=== PATIENT | female | born 1960 | race Caucasian/White ===

== ENCOUNTER 2016-10-02 12:05 | Emergency (ER) | payer MEDICAID, OTHER, SELFPAY ==
[2016-10-02 12:05] VITALS: BMI 28.1
[2016-10-02 12:15] VITALS: TEMP 98.9; O2SAT 98
[2016-10-02] MEDS ORDERED: Sodium Chloride 0.9% 1,000 ML IV STA (12:23)
[2016-10-02 13:30] LABS: BASO % 0.6 % (0.0-2.0); EOS # 0.1 K/uL (0.0-0.7); EOS % 1.3 % (0.0-4.0); HEMATOCRIT 37.2 % (34.0-47.0); LYMPH # 2.6 K/uL (1.0-4.3); MEAN CELL VOLUME 86.1 fl (81.0-99.0); MEAN CORPUSCULAR HEMOGLOBIN 28.3 pg (27.0-31.0); MEAN CORPUSCULAR HGB CONC 32.9 g/dL (33.0-37.0); MONO # 0.5 K/uL (0.0-0.8); MONO % 6.5 % (0.0-10.0); NEUT # 4.3 K/uL (1.8-7.0); NEUT % 56.6 % (50.0-75.0); RED CELL DISTRIBUTION WIDTH 13.5 % (11.5-14.5); WHITE BLOOD COUNT 7.5 K/uL (4.8-10.8)
--- NOTE | 2016-10-02 13:32 | RAD ---
HISTORY: dizzy palpitations COMPARISON: Chest x-ray performed 04/03/13 TECHNIQUE: Chest PA and lateral FINDINGS: LUNGS: No focal consolidation. Please note that chest x-ray has limited sensitivity for the detection of pulmonary masses. PLEURA: No significant pleural effusion identified. No definite pneumothorax . CARDIOVASCULAR: The cardiomediastinal silhouette appears within normal limits of size. OSSEOUS STRUCTURES: Degenerative changes. VISUALIZED UPPER ABDOMEN: Unremarkable. OTHER FINDINGS: None. IMPRESSION: No focal consolidation, significant pleural effusion, or definite pneumothorax identified.
[2016-10-02 13:39] LABS: BLOOD UREA NITROGEN 12 mg/dl (7-17); CARBON DIOXIDE 25 mmol/L (22-30); CHLORIDE 105 mmol/L (98-107); GFR AFRICAN-AMERICAN > 60; GLUCOSE,RANDOM 92 mg/dL (65-105); POTASSIUM 3.8 MMOL/L (3.6-5.0); SODIUM 142 mmol/l (132-148)
[2016-10-02 13:40] LABS: ALB/GLOB RATIO 1.3 (1.0-2.1); ALKALINE PHOSPHATASE 95 U/L (38-126); ALT/SGPT 35 U/L (9-52); AST/SGOT 25 U/L (14-36); BILIRUBIN,TOTAL 0.3 mg/dl (0.2-1.3); CALCIUM 9.4 mg/dL (8.4-10.2); TOTAL PROTEIN 7.5 G/DL (6.3-8.2); URINE BACTERIA FEW (<OCC); URINE BILIRUBIN NEGATIVE (NEGATIVE); URINE BLOOD NEGATIVE (NEGATIVE); URINE COLOR YELLOW (YELLOW); URINE GLUCOSE (UA) NEG (Normal); URINE KETONE NEGATIVE (NEGATIVE); URINE LEUKOCYTE ESTERASE SMALL Leu/uL (Negative); URINE PROTEIN NEGATIVE (NEGATIVE); URINE UROBILINOGEN 0.2-1.0 mg/dL (0.2-1.0); WBC URINE 2 /hpf (0-5)
--- NOTE | 2016-10-02 15:11 | ED PDOC ---
HPI: General Adult Time Seen by Provider: 10/02/16 12:23 Chief Complaint (Nursing): Flu-like Symptoms Chief Complaint (Provider): Body Aches and Pains History Per: Patient, Brass Buffer ([employer] boat carpenter mechanic was used) History/Exam Limitations: no limitations Onset/Duration Of Symptoms: Days (1 week ago) Have you had recent travel within the past 21 days to any of the following countries: [place], [place], [place] or [place]?: No Current Symptoms Are (Timing): Still Present Severity: Moderate Location: R shoulder, L neck, b/l hands Quality: aches and "pain" Additional Complaint(s): Love Vicente is a 56 year old female, with a past medical history of type 2 diabetes mellitus and hypertension, who presents to the emergency department for the evaluation of body aches and pains localized to her right shoulder, left neck, and bilateral hands, that the patient has been experiencing for 1 week. Associated chest congestion and a cough are currently present. Denies chest pain, orthopnea, edema, recent trauma, or acute injury. Of note, [employer] boat carpenter mechanic was used to obtain history from patient. PMD: none specified Past Medical History Reviewed: Historical Data, Nursing Documentation, Vital Signs Vital Signs: Last Vital Signs Temp 98.9 F 10/02/16 12:07 Pulse 79 10/02/16 12:07 Resp 18 10/02/16 12:07 BP 126/73 10/02/16 12:07 Pulse Ox 98 10/02/16 12:07 - Medical History PMH: Diabetes (type II), HTN, Hypercholesterolemia Denies: Chronic Kidney Disease - Surgical History Surgical History: Cholecystectomy Other surgeries: Colonoscopy - Family History Family History: States: No Known Family Hx - Social History Current smoker - smoking cessation education provided: No Ex-Smoker (has not smoked in the last 12 months): No Alcohol: None Drugs: Denies - Immunization History Hx Tetanus Toxoid Vaccination: No Hx Influenza Vaccination: No Hx Pneumococcal Vaccination: No - Home Medications Home Medications: Ambulatory Orders Medication Instructions Recorded Enalapril Maleate [Vasotec] 20 mg PO DAILY 06/02/16 Enalapril Maleate [Vasotec] 20 mg PO DAILY #30 tab 06/02/16 Folic Acid 1 tab PO DAILY 06/02/16 metFORMIN [glucOPHAGE] 1 tab PO DAILY 06/02/16 Naproxen [Naprosyn] 500 mg PO BID PRN #14 tablet 10/02/16 - Allergies Allergies/Adverse Reactions: Allergies Allergy/AdvReac Type Severity Reaction Status Date / Time No Known Allergies Allergy Verified 06/02/16 17:38 Review of Systems ROS Statement: Except As Marked, All Systems Reviewed And Found Negative Cardiovascular: Positive for: Other (chest congestion). Negative for: Chest Pain, Orthopnea, Edema Respiratory: Positive for: Cough Musculoskeletal: Positive for: Neck Pain (L-sided), Shoulder Pain (R-sided), Hand Pain (b/l) Physical Exam - Reviewed Nursing Documentation Reviewed: Yes Vital Signs Reviewed: Yes - Physical Exam Appears: Positive for: Non-toxic, No Acute Distress Head Exam: Positive for: ATRAUMATIC, NORMOCEPHALIC Skin: Positive for: Normal Color, Warm, Dry Cardiovascular/Chest: Positive for: Regular Rate, Rhythm. Negative for: Murmur Respiratory: Positive for: Normal Breath Sounds. Negative for: Respiratory Distress Gastrointestinal/Abdominal: Positive for: Normal Exam, Soft. Negative for: Tenderness Extremity: Positive for: Normal ROM, Other (several trigger point pain sites including wrists, shoulders, back, and neck). Negative for: Tenderness Neurologic/Psych: Positive for: Alert, Oriented - Laboratory Results Result Diagrams: 10/02/16 13:21 10/02/16 13:21 - ECG ECG Rhythm: Positive for: Sinus Rhythm. Negative for: ST/T Changes, Nonspecific Changes (no acute interval changes) Rate: 68 O2 Sat by Pulse Oximetry: 98 (RA) Pulse Ox Interpretation: Normal Medical Decision Making Medical Decision Makin:23 Initial Impression: Myalgia and arthralgia Initial Plan: * Chest X-Ray * EKG * CBC * CMP * Troponin I * Total Creatinine Kinase * Urinalysis * Influenza A/B * Sodium Chloride 0.9% 1,000 ml IV at 1,000 mls/hr * Toradol 30 mg IVP * Reevaluation 12:53 EKG results read at a rate of 68. Normal Sinus Rhythm, No Acute ST/T changes or Interval Changes. 01:53 Chest x-ray results came back unremarkable. Blood work is normal. Troponin is negative. Will discharge patient with Naproxen. Patient was referred to followup with Sherlyn Lopez MD for workup of arthralgia. Scribe Attestation: Documented by Torey Farrell, acting as a scribe for Rufus Hart III, MD. Provider Scribe Attestation: All medical record entries made by the Scribe were at my direction and personally dictated by me. I have reviewed the chart and agree that the record accurately reflects my personal performance of the history, physical exam, medical decision making, and the department course for this patient. I have also personally directed, reviewed, and agree with the discharge instructions and disposition. Disposition - Clinical Impression Clinical Impression: Myalgia, Arthralgia - Disposition Referrals: Sherlyn Lopez MD [Medical Doctor] - Condition: STABLE Additional Instructions: See your doctor for further testing. Return to ER for any new or worsening symptoms. Prescriptions: Naproxen [Naprosyn] 500 mg PO BID PRN #14 tablet PRN Reason: Pain, Moderate (4-7) Instructions: Trigger Point Pain (ED), Musculoskeletal Pain (ED), Arthralgia ( ED) Forms: [employer] (Nepalese)
[2016-10-02 15:32] VITALS: BP 135/89; PULSE 67; RESP 16
--- NOTE | 2016-10-03 10:15 | CARD ---
APPROVED REPORT EKG Measurement Heart [id number] <Conclusion> Normal sinus rhythm Normal ECG
== END 2016-10-02 15:31 | disposition home or self-care (01) ==
LOC: H.ER 12:05
DX: M79.1 Myalgia (principal); R05 Cough; M54.2 Cervicalgia; M25.512 Pain in left shoulder; R09.89 Other specified symptoms and signs involving the circulatory and respiratory systems; I10 Essential (primary) hypertension; E11.9 Type 2 diabetes mellitus without complications; R07.89 Other chest pain

== ENCOUNTER 2017-08-02 14:04 | Observation (INO) | payer OTHER ==
[2017-08-02 14:04] VITALS: BMI 28.1
[2017-08-02] MEDS ORDERED: Nitroglycerin 2% Ointment Foilpak UD TOP STA (14:57)
[2017-08-02] MEDS ORDERED: Nitroglycerin 2% Ointment Foilpak UD TOP ONE (15:15)
--- NOTE | 2017-08-02 15:16 | ED PDOC ---
HPI: Chest Pain Time Seen by Provider: 08/02/17 14:22 Chief Complaint (Nursing): Chest Pain Chief Complaint (Provider): Chest pain History Per: Patient History/Exam Limitations: no limitations Onset/Duration Of Symptoms: Days (4) Additional Complaint(s): Pt reports intermittent left sided chest pain X 4 days, associated with SOB and nonproductive cough. Denies fever, palpitations. Past Medical History Reviewed: Nursing Documentation, Vital Signs Vital Signs: Last Vital Signs Temp 97 F L 08/02/17 15:19 Pulse 92 H 08/02/17 17:06 Resp 19 08/02/17 17:06 BP 98/56 L 08/02/17 17:06 Pulse Ox 98 08/02/17 17:06 - Medical History PMH: Diabetes (type II), HTN, Hypercholesterolemia Denies: Chronic Kidney Disease - Surgical History Surgical History: Cholecystectomy - Family History Family History: States: Unknown Family Hx - Social History Current smoker - smoking cessation education provided: No Alcohol: None - Immunization History Hx Tetanus Toxoid Vaccination: No Hx Influenza Vaccination: No Hx Pneumococcal Vaccination: No - Home Medications Home Medications: Ambulatory Orders Medication Instructions Recorded Enalapril/Hydrochlorothiazide 1 tab PO DAILY 08/02/17 [Enalapril-Hctz 10-25 mg Tablet] Gemfibrozil [Lopid] 600 mg PO DAILY 08/02/17 metFORMIN [glucOPHAGE] 500 mg PO DAILY 08/02/17 - Allergies Allergies/Adverse Reactions: Allergies Allergy/AdvReac Type Severity Reaction Status Date / Time No Known Allergies Allergy Verified 08/02/17 14:13 VENITA Risk Score for UA/NSTEMI - VENITA Risk Score Age > 64: NO 3 or more CAD Risk Factors: YES Known CAD (Stenosis greater than 50%): NO Aspirin use in past 7 days: NO Severe Angina: NO EKG ST changes greater than 0.5mm: NO Positive Cardiac Marker: NO VENITA Score: 1 Risk %: 5% Wells Criteria for PE - Wells Criteria for Pulmonary Embolism Clinical Signs and Symptoms of DVT: No P.E is #1 Diagnosis, or Equally Likely: No Heart Rate >100: Yes Immobilization at least 3 days;Surgery previous 4 weeks: No Previous, objectively diagnosed PE or DVT: No Hemoptysis: No Malignancy w/treatment within 6 months, or palliative: No Total Score: 1.5 Review of Systems Constitutional: Negative for: Fever, Chills Cardiovascular: Positive for: Chest Pain. Negative for: Palpitations Respiratory: Positive for: Cough, Shortness of Breath. Negative for: Sputum, Wheezing Gastrointestinal: Negative for: Nausea, Vomiting, Abdominal Pain, Diarrhea Genitourinary Female: Negative for: Dysuria, Hematuria Skin: Negative for: Rash, Lesions Neurological: Negative for: Weakness, Numbness, Headache Physical Exam - Reviewed Nursing Documentation Reviewed: Yes Vital Signs Reviewed: Yes - Physical Exam Appears: Positive for: Well, No Acute Distress Head Exam: Positive for: ATRAUMATIC, NORMAL INSPECTION Skin: Positive for: Normal Color, Warm, Dry Eye Exam: Positive for: Normal appearance, EOMI, PERRL Neck: Positive for: Normal, Painless ROM, Supple Cardiovascular/Chest: Positive for: Regular Rate, Rhythm. Negative for: Chest Non Tender (TTP L chest wall) Respiratory: Positive for: Normal Breath Sounds. Negative for: Rales, Rhonchi, Wheezing Gastrointestinal/Abdominal: Positive for: Normal Exam Neurologic/Psych: Positive for: Alert, audit lead II-XII, Oriented - Laboratory Results Result Diagrams: 08/02/17 15:10 08/02/17 15:10 - ECG Interpretation Of ECG: ST @ 102, nonspecific T wave abnormality. O2 Sat by Pulse Oximetry: 96 Pulse Ox Interpretation: Normal Medical Decision Making Medical Decision Makin yo female with L sided CP. - labs - EKG - CXR - [employer] Accession No. : [id number] Patient Name / ID : DEQUAN CERVANTES / [id number] Exam Date : 08/02/2017 15:06:40 ( Approved ) Study Comment : Sex / Age : F / 56Y Creator : Cristobal Parra MD Dictator : Cristobal Parra MD Stereotyper Helper : Jewelry Store Manager : Cristobal Parra MD Approver2 : Report Date : 08/02/2017 15:37:48 My Comment : PROCEDURE: CHEST RADIOGRAPH, 1 VIEW HISTORY: CP COMPARISON: None available. FINDINGS: LUNGS: Clear. PLEURA: No pneumothorax or pleural fluid seen. CARDIOVASCULAR: Normal. OSSEOUS STRUCTURES: No significant abnormalities. VISUALIZED UPPER ABDOMEN: Normal. OTHER FINDINGS: None. IMPRESSION: No active disease. 15:05 Pt c/o dizziness, BP 98/56, Nitropaste discontinued. Disposition - Clinical Impression Clinical Impression: Chest pain - Patient ED Disposition Is Patient to be Admitted: Yes - Disposition Disposition Time: 17:31 Condition: STABLE Forms: [employer] (Wallisian) - Pt Status Changed To: Hospital Disposition Of: Observation - POA Present On Arrival: None
[2017-08-02 15:20] LABS: BASO # 0.1 K/uL (0.0-0.2); BASO % 0.8 % (0.0-2.0); EOS # 0.1 K/uL (0.0-0.7); HEMOGLOBIN 12.7 g/dL (12.0-16.0); LYMPH # 2.4 K/uL (1.0-4.3); LYMPH % 29.3 % (20.0-40.0); MEAN CELL VOLUME 86.4 fl (81.0-99.0); MEAN CORPUSCULAR HEMOGLOBIN 28.7 pg (27.0-31.0); MEAN CORPUSCULAR HGB CONC 33.2 g/dL (33.0-37.0); MEAN PLATELET VOLUME 8.1 fl (7.2-11.7); MONO # 0.5 K/uL (0.0-0.8); MONO % 6.2 % (0.0-10.0); NEUT % 62.7 % (50.0-75.0); NRBC % 0.1 % (0.0-0.0); RBC 4.43 Mil/uL (3.80-5.20); RED CELL DISTRIBUTION WIDTH 13.2 % (11.5-14.5)
[2017-08-02 15:23] LABS: ALB/GLOB RATIO 1.2 (1.0-2.1); ALBUMIN 4.2 g/dL (3.5-5.0); ALT/SGPT 52 U/L (9-52); AST/SGOT 31 U/L (14-36); BLOOD UREA NITROGEN 11 mg/dl (7-17); CALCIUM 9.4 mg/dL (8.4-10.2); GFR AFRICAN-AMERICAN > 60; GFR NON-AFRICAN AMERICAN > 60
[2017-08-02] MEDS ORDERED: Potassium Chloride 20 mEq ER Tab PO STA (15:36)
--- NOTE | 2017-08-02 15:39 | RAD ---
PROCEDURE: CHEST RADIOGRAPH, 1 VIEW HISTORY: CP COMPARISON: None available. FINDINGS: LUNGS: Clear. PLEURA: No pneumothorax or pleural fluid seen. CARDIOVASCULAR: Normal. OSSEOUS STRUCTURES: No significant abnormalities. VISUALIZED UPPER ABDOMEN: Normal. OTHER FINDINGS: None. IMPRESSION: No active disease.
[2017-08-02 15:52] LABS: PARTIAL THROMBOPLASTIN TIME 32.7 Seconds (25.6-37.1); PROTHROMBIN TIME 11.2 Seconds (9.8-13.1)
[2017-08-02] MEDS ORDERED: Potassium Chloride 20 mEq ER Tab PO ONE (17:03)
[2017-08-03 07:22] LABS: HDL CHOLESTEROL 26 MG/DL (30-70)
[2017-08-03 07:33] LABS: LDL CHOLESTEROL 88 mg/dL (0-129)
[2017-08-03] MEDS: Enoxaparin 40 mg Syringe SC SCH (08:19)
--- NOTE | 2017-08-03 13:33 | CP.PCM.CON ---
History of Present Illness - History of Present Illness History of Present Illness: I was asked to see patietn by Dr Angeles. Patient is a 56 year old female with PMH HTN, hypercholestreolemia, DM who presents with chest pain. Symptoms have began for the last 4 days and are described as intermittent pressure in the left side of the chest. Her symptoms are exertional and improve with rest. The patient has noted progressionof her symptoms. Review of Systems - Constitutional Constitutional: absent: As Per HPI, Anorexia, Chills, Daytime Sleepiness, Excessive Sweating, Fatigue, Fever, Frequent Falls, Headache, Increased Appetite , Lethargy, Malaise, Night Sweats, Snoring, Sleep Apnea, Weight Gain, Weight Loss, Weakness, Other - EENT Eyes: absent: As Per HPI, Blind Spots, Blurred Vision, Change in Vision, Decreased Night Vision, Diplopia, Discharge, Dry Eye, Exophthalmos, Floaters, Irritation, Itchy Eyes, Loss of Peripheral Vision, Pain, Photophobia, Requires Corrective Lenses, Sees Flashes, Spots in Vision, Tunnel Vision, Other Visual Disturbances, Loss of Vision, Other Ears: absent: As Per HPI, Decreased Hearing, Ear Discharge, Ear Pain, Tinnitus, Abnormal Hearing, Disequilibrium, Dizziness, Other Nose/Mouth/Throat: absent: As Per HPI, Epistaxis, Nasal Congestion, Nasal Discharge, Nasal Obstruction, Nasal Trauma, Nose Pain, Post Nasal Drip, Sinus Pain, Sinus Pressure, Bleeding Gums, Change in Voice, Dental Pain, Dry Mouth, Dysphagia, Halitosis, Hoarsness, Lip Swelling, Mouth Lesions, Mouth Pain, Odynophagia, Sore Throat, Throat Swelling, Tongue Swelling, Facial Pain, Neck Pain, Neck Mass, Other - Breasts Breasts: absent: As Per HPI, Change in Shape, Mass, Pain, Nipple Discharge, Nipple Inversion, Skin Changes, Swelling, Other - Cardiovascular Cardiovascular: Chest Pain at Rest, Chest Pain with Activity, Dyspnea - Respiratory Respiratory: Dyspnea - Gastrointestinal Gastrointestinal: absent: As Per HPI, Abdominal Pain, Belching, Bloating, Change in Bowel Habits, Change in Stool Character, Coffee Ground Emesis, Constipation, Cramping, Diarrhea, Dyspepsia, Dysphagia, Early Satiety, Excessive Flatus, Fecal Incontinence, Heartburn, Hematemesis, Hematochezia, Loose Stools, Melena, Nausea, Odynophagia, Temesmus, Vomiting, Other - Genitourinary Genitourinary: absent: As Per HPI, Change in Urinary Stream, Difficulty Urinating, Dysuria, Flank Pain, Hematuria, Pyuria, Nocturia, Urinary Incontinence, Urinary Frequency, Urinary Hesitance, Urinary Urgency, Voiding Freq/Small Amts, Freq UTI, Hx Renal/Bladder Calculi, Hx /Renal Surgery, Bladder Distension, Other - Musculoskeletal Musculoskeletal: absent: As Per HPI, Abnormal Gait, Arthralgias, Atrophy, Back Pain, Deformity, Joint Swelling, Limited Range of Motion, Loss of Height, Muscle Cramps, Muscle Weakness, Myalgias, Neck Pain, Numbness, Radiating Pain into Limb, Stiffness, Tingling, Other - Integumentary Integumentary: absent: As Per HPI, Acne, Alopecia, Bleeding Lesions, Change in Hair, Change in Nails, Change in Pigmentation, Changing Lesions, Dry Skin, Erythema, Furuncle, Hirsutism, Lesions, New Lesions, Non-Healing Lesions, Photosensitivity, Pruritus, Rash, Skin Pain, Skin Ulcer, Sores, Striae, Swelling , Unusual Bruising, Wounds, Jaundice, Other - Neurological Neurological: absent: As Per HPI, Abnormal Gait, Abnormal Hearing, Abnormal Movements, Abnormal Speech, Behavioral Changes, Burning Sensations, Confusion, Convulsions, Disequilibrium, Dizziness, Numbness, Focal Weakness, Frequent Falls , Headaches, Lack of Coordination, Loss of Vision, Memory Loss, Paresthesias, Radicular Pain, Restless Legs, Sensory Deficit, Syncope, Tingling, Tremor, Vertigo, Weakness, Other Visual Disturbances, Other - Endocrine Endocrine: absent: As Per HPI, Change in Body Appearance, Change in Libido, Cold Intolorance, Deepening of Voice, Excessive Sweating, Fatigue, Flushing, Heat Intolorance, Increase in Ring/Shoe/Hat Size, Palpitations, Polydipsia, Polyphagia, Polyuria, Other - Hematologic/Lymphatic Hematologic: absent: As Per HPI, Easy Bleeding, Easy Bruising, Lymphadenopathy, Other Past Patient History - Past Medical History & Family History Past Medical History?: Yes - Past Social History Smoking Status: Never Smoked - CARDIAC Hx Cardiac Disorders: Yes Hx Hypercholesterolemia: Yes Hx Hypertension: Yes - PULMONARY Hx Respiratory Disorders: No - NEUROLOGICAL Hx Neurological Disorder: No - HEENT Hx HEENT Problems: No - RENAL Hx Chronic Kidney Disease: No - ENDOCRINE/METABOLIC Hx Endocrine Disorders: Yes Hx Diabetes Mellitus Type 2: Yes - HEMATOLOGICAL/ONCOLOGICAL Hx Blood Disorders: No Hx AIDS: No Hx Human Immunodeficiency Virus (HIV): No - INTEGUMENTARY Hx Dermatological Problems: No - MUSCULOSKELETAL/RHEUMATOLOGICAL Hx Musculoskeletal Disorders: No Hx Falls: No - GASTROINTESTINAL Hx Gastrointestinal Disorders: No - GENITOURINARY/GYNECOLOGICAL Hx Genitourinary Disorders: No - PSYCHIATRIC Hx Psychophysiologic Disorder: No Hx Substance Use: No - SURGICAL HISTORY Hx Surgeries: Yes Hx Cholecystectomy: Yes - ANESTHESIA Hx Anesthesia: Yes Hx Anesthesia Reactions: No Hx Malignant Hyperthermia: No Meds Allergies/Adverse Reactions: Allergies Allergy/AdvReac Type Severity Reaction Status Date / Time No Known Allergies Allergy Verified 08/02/17 14:13 - Medications Medications: Current Medications Enalapril Maleate (Vasotec) 10 mg PO DAILY [facility] Last Admin: 08/03/17 13:00 Dose: 10 mg Enoxaparin Sodium (Lovenox) 40 mg SC DAILY [facility] PRN Reason: Protocol Last Admin: 08/03/17 08:19 Dose: 40 mg Gemfibrozil (Lopid) 600 mg PO DAILY [facility] Last Admin: 08/03/17 08:19 Dose: 600 mg Hydrochlorothiazide (Hydrodiuril) 25 mg PO DAILY [facility] Last Admin: 08/03/17 08:19 Dose: 25 mg Metformin HCl (Glucophage) 500 mg PO DAILY [facility] Last Admin: 08/03/17 08:19 Dose: 500 mg Physical Exam - Constitutional Appears: Non-toxic - Head Exam Head Exam: NORMAL INSPECTION - Eye Exam Eye Exam: Normal appearance - ENT Exam ENT Exam: Mucous Membranes Moist - Neck Exam Neck exam: Positive for: Normal Inspection - Respiratory Exam Respiratory Exam: NORMAL BREATHING PATTERN - Cardiovascular Exam Cardiovascular Exam: REGULAR RHYTHM - GI/Abdominal Exam GI & Abdominal Exam: Normal Bowel Sounds - Rectal Exam Rectal Exam: Deferred - Extremities Exam Extremities exam: Positive for: full ROM, pedal edema - Back Exam Back exam: NORMAL INSPECTION - Neurological Exam Neurological exam: Alert, Oriented x3 - Psychiatric Exam Psychiatric exam: Normal Affect - Skin Skin Exam: Normal Color Results - Vital Signs Recent Vital Signs: Last Vital Signs Temp 98.2 F 08/03/17 12:12 Pulse 84 08/03/17 12:12 Resp 18 08/03/17 12:12 BP 122/74 08/03/17 12:12 Pulse Ox 97 08/03/17 12:12 - Labs Result Diagrams: 08/02/17 15:10 08/02/17 15:10 Labs: Laboratory Results - last 24 hr 08/02/17 08/02/17 08/02/17 15:10 15:10 15:10 WBC 8.0 RBC 4.43 Hgb 12.7 Hct 38.3 MCV 86.4 MCH 28.7 MCHC 33.2 RDW 13.2 Plt Count 306 MPV 8.1 Neut % (Auto) 62.7 Lymph % (Auto) 29.3 [place] % (Auto) 6.2 Eos % (Auto) 1.0 Baso % (Auto) 0.8 Neut # (Auto) 5.0 Lymph # (Auto) 2.4 [place] # (Auto) 0.5 Eos # (Auto) 0.1 Baso # (Auto) 0.1 PT 11.2 INR 1.0 APTT 32.7 D-Dimer, Quantitative Sodium 142 Potassium 3.4 L Chloride 100 Carbon Dioxide 27 Anion Gap 18 BUN 11 Creatinine 0.7 Est GFR ( Amer) > 60 Est GFR (Non-Af Amer) > 60 POC Glucose (mg/dL) Random Glucose 146 H Calcium 9.4 Total Bilirubin 0.3 AST 31 ALT 52 D Alkaline Phosphatase 88 Troponin I < 0.0120 Total Protein 7.7 Albumin 4.2 Globulin 3.5 Albumin/Globulin Ratio 1.2 Triglycerides Cholesterol LDL Cholesterol Direct HDL Cholesterol TSH 3rd Generation 08/02/17 08/02/17 08/02/17 15:51 21:12 22:26 WBC RBC Hgb Hct MCV MCH MCHC RDW Plt Count MPV Neut % (Auto) Lymph % (Auto) [place] % (Auto) Eos % (Auto) Baso % (Auto) Neut # (Auto) Lymph # (Auto) [place] # (Auto) Eos # (Auto) Baso # (Auto) PT INR APTT D-Dimer, Quantitative 97 Sodium Potassium Chloride Carbon Dioxide Anion Gap BUN Creatinine Est GFR ( Amer) Est GFR (Non-Af Amer) POC Glucose (mg/dL) 121 H Random Glucose Calcium Total Bilirubin AST ALT Alkaline Phosphatase Troponin I < 0.0120 Total Protein Albumin Globulin Albumin/Globulin Ratio Triglycerides Cholesterol LDL Cholesterol Direct HDL Cholesterol TSH 3rd Generation 08/03/17 08/03/17 08/03/17 05:30 05:41 11:23 WBC RBC Hgb Hct MCV MCH MCHC RDW Plt Count MPV Neut % (Auto) Lymph % (Auto) [place] % (Auto) Eos % (Auto) Baso % (Auto) Neut # (Auto) Lymph # (Auto) [place] # (Auto) Eos # (Auto) Baso # (Auto) PT INR APTT D-Dimer, Quantitative Sodium Potassium Chloride Carbon Dioxide Anion Gap BUN Creatinine Est GFR ( Amer) Est GFR (Non-Af Amer) POC Glucose (mg/dL) 133 H 152 H Random Glucose Calcium Total Bilirubin AST ALT Alkaline Phosphatase Troponin I < 0.0120 Total Protein Albumin Globulin Albumin/Globulin Ratio Triglycerides 328 H Cholesterol 175 LDL Cholesterol Direct 88 HDL Cholesterol 26 L TSH 3rd Generation 1.53 - EKG Data EKG Interpreted by: Myself EKG shows normal: Sinus rhythm Assessment & Plan (1) Diabetes Assessment and Plan: risk factor for CAD. recommend nuclear perfusion stress test. Status: Acute (2) HTN (hypertension) Assessment and Plan: blood pressure control. ARB therapy is indicated given diabetes Status: Acute (3) Chest pain Assessment and Plan: will recommend nuclear stress test for further evaluation Status: Acute
[2017-08-03 14:09] LABS: B-TYPE NATRIURETIC PEPTIDE < 11.1 pg/ml (0-900); BLOOD UREA NITROGEN 17 mg/dl (7-17); CALCIUM 9.9 mg/dL (8.4-10.2); GFR AFRICAN-AMERICAN > 60; GFR NON-AFRICAN AMERICAN > 60
--- NOTE | 2017-08-03 19:59 | CP.PCM.HP ---
History of Present Illness - History of Present Illness History of Present Illness: This is a 56 y/o female admitted for persistent on and off chest pain for the past 4 days. She has a hx of HTN and DM 2 and hyperlipidemia and has not been sent for cardiac evaluation. She sought medical evaluation due to persistence of symptoms. She denies any SOB. Currently on Metformin, HCTZ and Lopid. Not on ASA Past Patient History - Past Medical History & Family History Past Medical History?: Yes - Past Social History Smoking Status: Never Smoked - CARDIAC Hx Cardiac Disorders: Yes Hx Hypercholesterolemia: Yes Hx Hypertension: Yes - PULMONARY Hx Respiratory Disorders: No - NEUROLOGICAL Hx Neurological Disorder: No - HEENT Hx HEENT Problems: No - RENAL Hx Chronic Kidney Disease: No - ENDOCRINE/METABOLIC Hx Endocrine Disorders: Yes Hx Diabetes Mellitus Type 2: Yes - HEMATOLOGICAL/ONCOLOGICAL Hx Blood Disorders: No Hx AIDS: No Hx Human Immunodeficiency Virus (HIV): No - INTEGUMENTARY Hx Dermatological Problems: No - MUSCULOSKELETAL/RHEUMATOLOGICAL Hx Musculoskeletal Disorders: No Hx Falls: No - GASTROINTESTINAL Hx Gastrointestinal Disorders: No - GENITOURINARY/GYNECOLOGICAL Hx Genitourinary Disorders: No - PSYCHIATRIC Hx Psychophysiologic Disorder: No Hx Substance Use: No - SURGICAL HISTORY Hx Surgeries: Yes Hx Cholecystectomy: Yes - ANESTHESIA Hx Anesthesia: Yes Hx Anesthesia Reactions: No Hx Malignant Hyperthermia: No Meds Allergies/Adverse Reactions: Allergies Allergy/AdvReac Type Severity Reaction Status Date / Time No Known Allergies Allergy Verified 08/02/17 14:13 Results - Vital Signs Recent Vital Signs: Last Vital Signs Temp 98.6 F 08/03/17 19:24 Pulse 99 H 08/03/17 19:24 Resp 20 08/03/17 19:24 BP 128/71 08/03/17 19:24 Pulse Ox 96 08/03/17 19:24 - Labs Result Diagrams: 08/02/17 15:10 08/03/17 13:14 Labs: Laboratory Results - last 24 hr 08/02/17 08/02/17 08/03/17 21:12 22:26 05:30 Sodium Potassium Chloride Carbon Dioxide Anion Gap BUN Creatinine Est GFR ( Amer) Est GFR (Non-Af Amer) POC Glucose (mg/dL) 121 H Random Glucose Calcium Troponin I < 0.0120 < 0.0120 NT-Pro-B Natriuret Pep Triglycerides 328 H Cholesterol 175 LDL Cholesterol Direct 88 HDL Cholesterol 26 L TSH 3rd Generation 1.53 08/03/17 08/03/17 08/03/17 05:41 11:23 13:14 Sodium 144 Potassium 3.9 Chloride 100 Carbon Dioxide 26 Anion Gap 22 H BUN 17 Creatinine 0.7 Est GFR ( Amer) > 60 Est GFR (Non-Af Amer) > 60 POC Glucose (mg/dL) 133 H 152 H Random Glucose 122 H Calcium 9.9 Troponin I NT-Pro-B Natriuret Pep < 11.1 Triglycerides Cholesterol LDL Cholesterol Direct HDL Cholesterol TSH 3rd Generation 08/03/17 16:53 Sodium Potassium Chloride Carbon Dioxide Anion Gap BUN Creatinine Est GFR ( Amer) Est GFR (Non-Af Amer) POC Glucose (mg/dL) 99 Random Glucose Calcium Troponin I NT-Pro-B Natriuret Pep Triglycerides Cholesterol LDL Cholesterol Direct HDL Cholesterol TSH 3rd Generation
[2017-08-04 00:18] VITALS: RESP 18
--- NOTE | 2017-08-04 09:03 | CARD ---
APPROVED REPORT EKG Measurement Heart [id number] <Conclusion> Sinus tachycardia Nonspecific T wave abnormality Abnormal ECG
[2017-08-04 12:25] VITALS: O2SAT 97
[2017-08-04 14:05] VITALS: BP 126/78; PULSE 77; TEMP 98.2
[2017-08-04] MEDS: Enoxaparin 40 mg Syringe SC SCH (14:28)
--- NOTE | 2017-08-04 17:15 | CARD ---
APPROVED REPORT Protocol: LEXISCAN Test Type: LEXISCAN Medications: VASOTEC 10MG LOVENOX 40MG LOPID 600MG HYDRODIURIL 25MG GLUCOPHAGE 500MG Medical History: Hypercholesterolemia, Hypertension, Diabetes, Chlecysttectomy, Target HR: 164 bpm Resting ECG: normal Resting Heart Rate: 77 bpm Resting Blood Pressure: 126/78mmHg submaximum (85%): 139 bpm TEST SUMMARY PREINJECTPRE-INJEC28:[id number]/78.0. [id number]/78.0. INJECTIONNS FLUSH00:[id number]/78.0. INJECTIONNUC MED00:[id number]/78.0. [id number]/83.0. PROCEDURE Pharmacologic stress testing was performed using 0.4mg per 5ml of regadenoson given intravenously over 7-10 seconds. POST EXERCISE Reason for Termination: completed the test Target HR: No Max HR: 106 bpm 66% of Maximum Predicted HR: 164 bpm Exercise duration: 01:00 min:sec, 0 Stage Exercise capacity: 1.0METs Max Blood Pressure: 153/88mmHg Blood Pressure response to exercise: pharmacological Heart Rate response to exercise: pharmacological Chest Pain: No, none Angina index: 0 Arrhythmia: No, none ST Change: No, none Deviation: 0 mm Clinical Indications Under Appropriate Use Criteria chest pain Stress EKG Interpretation Normal pharmacological portion of the stress test. EXAM: Myocardial Perfusion REST/STRESS Image QualityGood Imaging Protocol The imaging protocol used to acquire images was Rest Tc-99m/stress Tc-99m 1 day Rest Spect myocardial perfusion imaging was performed in supine position 40 minutes following the injection of 10 mCi of Tc-99 Myoview. Time of rest injection: 7:56 Time of rest imagin:40 At peak stress, the patient was injected intravenously with 30mCi of Tc-99 tetrofosmin after an infusion time of minutes and seconds. Time of stress injection: 11;18 Time of stress imagin:50 Gated Stress Spect was performed 75 minutes after intravenous Tc-99 Myoview injection. The images were gated to evaluate regional wall motion and calculate ventricular ejection fraction. NUCLEAR IMAGE INTERPRETATION The rest and stress images show normal perfusion, normal contraction and thickening. LV Perfusion The perfusion of the left ventricle was within normal limits on the standard three tomographic images. Wall Motion normal LVEF of 68% CONCLUSION 1. The patient is a 56 year old female referred for a pharmacological stress test due to chest pain. She also has a history of hypertension, hyperlipidemia and Type 2 diabtes mellitus. Her medicines include enalapril, lopid, hydrodiuril, glucophage and lovenox. The resting EKG shows normal sinus rhythm. The patient was hooked up to a continuous monitor car operator and lexiscan at a dose of 0.4 mg/5ml was injected intravenously. She tolerated the lexiscan well without any chest pain or significant EKG changes. The vital signs were stable and there weren't any side effects from the lexiscan. The nuclear scans showed that the perfusion of the left ventricle was within normal limits. The LVEF on the gated study was 68%. 2. Impression: Negative pharmacological stress test for ischemia. LVEF of 68%. Recommendation medical treatment The results of this stress test were discussed with Dr. Mikhail Gann.
== END 2017-08-04 15:59 | disposition home or self-care (01) ==
LOC: H.ER 14:04 → H.ERHOLD 18:20 → H.TEL 21:04
PROVIDERS: ADMIT Family Medicine; ATTEND Family Medicine
DX: R07.9 Chest pain, unspecified (principal); E11.9 Type 2 diabetes mellitus without complications; I10 Essential (primary) hypertension; E78.00 Pure hypercholesterolemia, unspecified; E78.5 Hyperlipidemia, unspecified
CPT/HCPCS: 36415; 71045; 78452; 80048; 80053; 80061; 82948; 83036; 83880; 84443; 84484; 85025; 85378; 85610; 85730; 93005; 93017; 99285; A9502; G0378; J1650; J2785